=== PATIENT | female | born 1950 | race Caucasian/White ===

== ENCOUNTER 2018-02-19 07:21 | Observation (INO) | payer MEDICARE, OTHER ==
[2018-02-19 10:26] LABS: ADD MAN DIFF? NO
[2018-02-19 10:30] LABS: BASOPHILS % 0.6 % (0.0-2.0); EOSINOPHILS # 0.1 10^3/ul (0.0-0.5); EOSINOPHILS % 1.8 % (0.0-7.0); HEMATOCRIT 38.5 % (37.0-47.0); HEMOGLOBIN 12.9 g/dl (12.0-16.0); LYMPHOCYTES # 2.4 10^3/ul (0.8-2.9); LYMPHOCYTES % 36.5 % (15.0-51.0); MEAN CORPUSCULAR HEMOGLOBIN 32.3 pg (29.0-33.0); MEAN CORPUSCULAR HGB CONC 33.5 g/dl (32.0-37.0); MEAN CORPUSCULAR VOLUME 96.3 fl (82.0-101.0); MEAN PLATELET VOLUME 11.6 fl (7.4-10.4); MONOCYTE # 0.7 10^3/ul (0.3-0.9); MONOCYTES % 10.7 % (0.0-11.0); NEUTROPHIL # 3.3 10^3/ul (1.6-7.5); NEUTROPHILS % 50.1 % (39.0-77.0); PLATELET COUNT 157 10^3/UL (140-415)
[2018-02-19 10:30] LABS: WHITE BLOOD COUNT 6.5 10^3/ul (4.8-10.8)
[2018-02-19] MEDS ORDERED: FENTAnyl 50 MCG/ML VIAL IV ×2 (10:30)
[2018-02-19] MEDS ORDERED: DIPHENHYDRAMINE 50 MG INJ IV (10:30)
[2018-02-19] MEDS ORDERED: morphine (1 MG/ML) 10ML SYRINGE IV ×2 (10:30)
[2018-02-19] MEDS ORDERED: ONDANSETRON 4 MG INJ IV ×2 (10:30→14:30)
[2018-02-19] MEDS ORDERED: HYDROmorphONE 1 MG/5 ML IV SYRINGE IV ×2 (10:30)
[2018-02-19] MEDS ORDERED: LABETALOL HCL 20MG INJ IV (10:30)
[2018-02-19] MEDS ORDERED: OXYCODONE/ACETAMINOPHEN (5/325) TAB PO ×2 (10:30)
[2018-02-19] MEDS ORDERED: MEPERIDINE 25 MG INJ IV (10:30)
[2018-02-19 10:45] LABS: ALANINE AMINOTRANSFERASE 95 IU/L (13-69); ALBUMIN 4.4 g/dl (3.3-4.9); ALBUMIN/GLOBULIN RATIO 1.33; ALKALINE PHOSPHATASE 136 IU/L (42-121); ANION GAP 14 (8-16); ASPARTATE AMINO TRANSFERASE 86 IU/L (15-46); BILIRUBIN,INDIRECT 0.5 mg/dl (0-1.1); BILIRUBIN,TOTAL 0.5 mg/dl (0.2-1.3); BLOOD UREA NITROGEN 16 mg/dl (7-20); CALCIUM 9.4 mg/dl (8.4-10.2); CARBON DIOXIDE 24 mmol/L (21-31); CHLORIDE 106 mmol/L (97-110); CREATININE 1.26 mg/dl (0.44-1.00); GLUCOSE 191 mg/dl (70-220); POTASSIUM 4.4 mmol/L (3.5-5.1); SODIUM 140 mmol/L (135-144); TOTAL PROTEIN 7.7 g/dl (6.1-8.1)
[2018-02-19 10:49] LABS: INR 1.02; PROTIME 13.5 Sec (11.9-14.9); PT RATIO 1.1
[2018-02-19 10:50] LABS: PARTIAL THROMBOPLASTIN TIME 28.1 Sec (25.0-35.0)
[2018-02-19] MEDS: METOCLOPRAMIDE 10 MG INJ IV (11:30)
[2018-02-19] MEDS ORDERED: MIDAZOLAM 1 MG/ML 2 ML INJ (11:32)
[2018-02-19] MEDS ORDERED: FENTAnyl 50 MCG/ML VIAL ×3 (11:32→13:49)
[2018-02-19] MEDS ORDERED: PROPOFOL 40 ML (11:32)
[2018-02-19] MEDS ORDERED: ONDANSETRON 4 MG INJ (11:33)
[2018-02-19] MEDS ORDERED: FAMOTIDINE 20 MG INJ (11:33)
[2018-02-19] MEDS ORDERED: METOCLOPRAMIDE 10 MG INJ (11:35)
[2018-02-19] MEDS ORDERED: DEXAMETHASONE 4 MG/ML 1 ML INJ (11:35)
[2018-02-19] MEDS ORDERED: CEFAZOLIN 1 GM INJ (11:35)
[2018-02-19] MEDS: CEFAZOLIN 2 GM/50 ML (PMX) 50 ML IVPB (12:00)
[2018-02-19] MEDS ORDERED: CA CHLORIDE 10% 10 ML SYRINGE (12:00)
[2018-02-19] MEDS: ISOSULFAN BLUE 1% 5 ML INJ SC (12:05)
[2018-02-19] MEDS ORDERED: EPHEDrine SULFATE 50 MG/5 ML SYG ×2 (12:33→12:59)
[2018-02-19] MEDS ORDERED: PHENYLephrine (100 MCG/ML) 5ML SYG (12:33)
[2018-02-19] MEDS: D5W-0.45 NACL + KCL 20 MEQ 1,000 ML IV ×2 (14:03→21:31)
[2018-02-19] MEDS ORDERED: ACETAMINOPHEN 1000MG/100ML IV 100 ML IVPB (14:30)
[2018-02-19] MEDS ORDERED: morphine 2 MG INJ IV (14:30)
[2018-02-19] MEDS ORDERED: GLUCOSE GEL 15 GRAM TUBE PO ×2 (17:00)
[2018-02-19] MEDS ORDERED: GLUCOSE GEL 15 GRAM TUBE BUCCAL (17:00)
[2018-02-19] MEDS ORDERED: DEXTROSE 50% 50 ML SYRINGE IV ×2 (17:00)
[2018-02-19] MEDS ORDERED: GLUCAGON 1 MG INJ IM (17:00)
[2018-02-19] MEDS: SOD CHLORIDE 0.9% 1,000 ML IV (18:08)
[2018-02-19] MEDS ORDERED: NON-FORMULARY/PATIENT OWN MED (Simvastatin* (Zocor*) 20 MG) PO (21:00)
[2018-02-19] MEDS: ATORVASTATIN 10 MG TAB PO (21:29)
[2018-02-19] MEDS: GLIMEPIRIDE 4 MG TAB PO (21:29)
[2018-02-19] MEDS: INSULIN ASPART [NOVOLOG] 3 ML PEN SC (21:31)
[2018-02-20] MEDS: ACCU-CHEK XX (01:34)
[2018-02-20 05:04] LABS: ADD MAN DIFF? NO; BASOPHILS % 0.3 % (0.0-2.0); HEMATOCRIT 31.9 % (37.0-47.0); HEMOGLOBIN 10.8 g/dl (12.0-16.0); LYMPHOCYTES # 0.9 10^3/ul (0.8-2.9); LYMPHOCYTES % 12.3 % (15.0-51.0); MEAN CORPUSCULAR HEMOGLOBIN 33.1 pg (29.0-33.0); MEAN CORPUSCULAR HGB CONC 33.9 g/dl (32.0-37.0); MEAN CORPUSCULAR VOLUME 97.9 fl (82.0-101.0); MEAN PLATELET VOLUME 11.2 fl (7.4-10.4); MONOCYTE # 0.6 10^3/ul (0.3-0.9); MONOCYTES % 7.5 % (0.0-11.0); NEUTROPHIL # 5.9 10^3/ul (1.6-7.5); NEUTROPHILS % 79.6 % (39.0-77.0); PLATELET COUNT 130 10^3/UL (140-415); RED BLOOD COUNT 3.26 10^6/ul (4.20-5.40); RED CELL DISTRIBUTION WIDTH 12.1 % (11.5-14.5)
[2018-02-20 05:04] LABS: WHITE BLOOD COUNT 7.4 10^3/ul (4.8-10.8)
[2018-02-20 05:37] LABS: ANION GAP 11 (8-16); BLOOD UREA NITROGEN 21 mg/dl (7-20); CALCIUM 9.1 mg/dl (8.4-10.2); CARBON DIOXIDE 24 mmol/L (21-31); CHLORIDE 108 mmol/L (97-110); CREATININE 1.29 mg/dl (0.44-1.00); GLUCOSE 217 mg/dl (70-220); POTASSIUM 4.6 mmol/L (3.5-5.1); SODIUM 138 mmol/L (135-144)
[2018-02-20] MEDS: PANTOPRAZOLE (EC) 40 MG TAB PO (06:02)
[2018-02-20] MEDS: D5W-0.45 NACL + KCL 20 MEQ 1,000 ML IV ×2 (06:02→14:03)
[2018-02-20] MEDS: GLIMEPIRIDE 4 MG TAB PO (08:23)
[2018-02-20] MEDS: INSULIN ASPART [NOVOLOG] 3 ML PEN SC ×2 (08:24→12:13)
[2018-02-20] MEDS ORDERED: NON-FORMULARY/PATIENT OWN MED (Omeprazole* 20 MG) PO (09:00)
[2018-02-20] MEDS ORDERED: NON-FORMULARY/PATIENT OWN MED (Sitagliptin* (Januvia*) 50 MG) PO (09:00)
[2018-02-20] MEDS: EMPAGLIFLOZIN 10 MG TABLET PO (09:08)
[2018-02-20] MEDS: LISINOPRIL 10 MG TAB PO (09:08)
[2018-02-20] MEDS: LINAGLIPTIN 5 MG TABLET PO (09:08)
[2018-02-20] MEDS: FLUOXETINE 20 MG CAP PO (09:08)
[2018-02-20 11:37] LABS: HEMOGLOBIN A1C 8.6 % (0-5.9)
[2018-02-20] MEDS ORDERED: morphine LIQ (10 MG/5 ML) CUP PO (17:00)
== END 2018-02-20 17:30 | disposition home or self-care (01) ==
LOC: SDS 07:21 → REC 14:04 → MS1 17:35
PROVIDERS: Surgery Surgical Oncology
DX: C50.911 Malignant neoplasm of unspecified site of right female breast (principal); I12.9 Hypertensive chronic kidney disease with stage 1 through stage 4 chronic kidney disease, or unspecified chronic kidney disease; E11.22 Type 2 diabetes mellitus with diabetic chronic kidney disease; N18.9 Chronic kidney disease, unspecified; E78.5 Hyperlipidemia, unspecified; K21.9 Gastro-esophageal reflux disease without esophagitis
CPT/HCPCS: 19301; 71045; 80048; 80053; 82962; 83036; 85025; 85610; 85730; 88307; 88331; 93005; 99217

== ENCOUNTER 2018-02-24 22:41 | Emergency (ER) | payer MEDICARE, OTHER | END 2018-02-25 00:01 | disposition home or self-care (01) | LOC: E/R 02-25 00:01 | DX: T81.89XA Other complications of procedures, not elsewhere classified, initial encounter (principal); I10 Essential (primary) hypertension; E11.9 Type 2 diabetes mellitus without complications; Y82.9 Unspecified medical devices associated with adverse incidents; Z85.3 Personal history of malignant neoplasm of breast; Z79.84 Long term (current) use of oral hypoglycemic drugs | CPT/HCPCS: 99282 ==